=== PATIENT | female | born 1955 | race Asian ===

== ENCOUNTER 2017-07-08 21:20 | Inpatient (IN) | payer MEDICAID ==
[~2017-07-08] VITALS: Ht 157.5 cm; Wt 50.6 kg
[2017-07-08 22:10] LABS: BASOPHIL % 0.1 % (0-2)
[2017-07-08 22:22] LABS: CALCIUM 7.9 mg/dL (8.5-10.1); CARBON DIOXIDE 23.7 mmol/L (21-32); POTASSIUM SERUM 3.7 mmol/L (3.5-5.1)
[2017-07-08 22:25] LABS: PLATELET COUNT 32 x10^3mcL (130-400); RED CELL DISTRIBUTION WIDTH 20.4 % (11.5-14.5)
[2017-07-08 22:27] LABS: BILIRUBIN TOTAL 0.18 mg/dL (0.20-1.00)
[2017-07-08 22:30] LABS: ALBUMIN 1.1 g/dL (3.4-5.0); TOTAL PROTEIN, SERUM 4.7 g/dL (6.4-8.2)
[2017-07-08 22:40] LABS: rbc morphology (normal/abnorm) ABNORMAL (NORMAL)
[2017-07-08 23:17] LABS: microscopic required? NO
[2017-07-08] MEDS ORDERED: ZYKADIA150 MG PO (23:18)
[2017-07-08] MEDS ORDERED: MARINOL5 MG PO (23:21)
[2017-07-08] MEDS ORDERED: NYSTATIN100000 U/M PO (23:22)
[2017-07-09] VITALS (8 sets, daily range): BP systolic 111–137; BP diastolic 64–93; Ht 157.5 cm; Wt 50.6 kg
[2017-07-09 00:04] LABS: UA SPECIFIC GRAVITY 1.015 (1.005-1.035); urine erythrocyte NEGATIVE (NEGATIVE)
[2017-07-09 00:41] LABS: CHOLESTEROL/HDL RATIO 8.6; MAGNESIUM 2.4 mg/dL (1.8-2.4); PHOSPHOROUS 4.1 mg/dL (2.5-4.9)
[2017-07-09 00:51] LABS: FREE T4 1.28 ng/dL (0.76-1.46); FREE THYROXINE INDEX 3.4 ug/dL (1.4-4.5); T4(THYROXINE) 8.6 ug/dL (4.7-13.3)
[2017-07-09 01:46] LABS: T3 TOTAL 0.73 ng/mL
[2017-07-10 03:41] VITALS: BP 139/81
[2017-07-10 06:03] LABS: CALCIUM 7.9 mg/dL (8.5-10.1); CARBON DIOXIDE 25.9 mmol/L (21-32); CHLORIDE SERUM 124 mmol/L (98-107); CREATININE SERUM 0.6 mg/dL (0.6-1.0); GFR1 > 60 mL/min; GLUCOSE SERUM 89 mg/dL (74-106); MAGNESIUM 2.1 mg/dL (1.8-2.4); PHOSPHOROUS 3.8 mg/dL (2.5-4.9); POTASSIUM SERUM 3.5 mmol/L (3.5-5.1); SODIUM SERUM 156 mmol/L (136-145)
[2017-07-10 06:08] LABS: BASOPHIL % 0 % (0-2); RED CELL DISTRIBUTION WIDTH 20.9 % (11.5-14.5)
[2017-07-10 06:09] LABS: PLATELET COUNT 17 x10^3mcL (130-400)
[2017-07-10 07:30] VITALS: BP 118/80
[2017-07-10 11:30] VITALS: BP 118/78
[2017-07-10 15:20] VITALS: BP 126/90
[2017-07-10 19:50] VITALS: BP 138/79
[2017-07-11] VITALS (7 sets, daily range): BP systolic 102–137; BP diastolic 72–94
[2017-07-11 08:27] LABS: CALCIUM 7.9 mg/dL (8.5-10.1); CARBON DIOXIDE 25.2 mmol/L (21-32); CHLORIDE SERUM 122 mmol/L (98-107); CREATININE SERUM 0.8 mg/dL (0.6-1.0); GFR1 > 60 mL/min; GLUCOSE SERUM 161 mg/dL (74-106); MAGNESIUM 2.1 mg/dL (1.8-2.4); PHOSPHOROUS 3.6 mg/dL (2.5-4.9); POTASSIUM SERUM 3.3 mmol/L (3.5-5.1); SODIUM SERUM 153 mmol/L (136-145)
[2017-07-11 09:27] LABS: RED CELL DISTRIBUTION WIDTH 20.6 % (11.5-14.5)
[2017-07-11 09:30] LABS: PLATELET COUNT 14 x10^3mcL (130-400)
[2017-07-11 10:30] LABS: MONOCYTE 4 % (0-7); SEGMENTED NEUTROPHILS 65 % (37-75)
[2017-07-11 10:32] LABS: BAND NEUTROPHIL 20 % (0-10); BASOPHIL 0 % (0-2); rbc morphology (normal/abnorm) ABNORMAL (NORMAL); schistocyte (helmet cell) 1+; tear drop cell (dacryocyte) 1+
[2017-07-11 10:33] LABS: PLATELET MORPHOLOGY PLATELETS DECREASED
[2017-07-12 04:00] VITALS: BP 93/77
[2017-07-12 06:05] LABS: CALCIUM 8.4 mg/dL (8.5-10.1); CARBON DIOXIDE 20.3 mmol/L (21-32); CREATININE SERUM 1.3 mg/dL (0.6-1.0); MAGNESIUM 2.2 mg/dL (1.8-2.4); PHOSPHOROUS 5.9 mg/dL (2.5-4.9)
[2017-07-12 06:29] LABS: BASOPHIL % 0 % (0-2); PLATELET COUNT 11 x10^3mcL (130-400); RED CELL DISTRIBUTION WIDTH 21.6 % (11.5-14.5)
[2017-07-12 23:16] VITALS: BP 77/48
[2017-07-13 05:53] VITALS: BP 71/42
[2017-07-13 09:57] VITALS: BP 64/38
[2017-07-13 22:12] VITALS: BP 140/113
== END 2017-07-14 18:30 | disposition expired | DRG 720 ==
LOC: ED 21:20 → IC 23:08 → DU 23:08 → MU 07-12 16:04
PROVIDERS: Emergency Medicine; Family Medicine; ADMIT Family Medicine
DX: A41.9 Sepsis, unspecified organism (principal); N17.0 Acute kidney failure with tubular necrosis; J96.01 Acute respiratory failure with hypoxia; I26.99 Other pulmonary embolism without acute cor pulmonale; J69.0 Pneumonitis due to inhalation of food and vomit; E87.8 Other disorders of electrolyte and fluid balance, not elsewhere classified; D69.59 Other secondary thrombocytopenia; C78.7 Secondary malignant neoplasm of liver and intrahepatic bile duct; C79.31 Secondary malignant neoplasm of brain; C79.51 Secondary malignant neoplasm of bone; J91.0 Malignant pleural effusion; R65.20 Severe sepsis without septic shock; E43 Unspecified severe protein-calorie malnutrition; Z66 Do not resuscitate; E86.0 Dehydration; Z51.5 Encounter for palliative care; L89.152 Pressure ulcer of sacral region, stage 2; M62.50 Muscle wasting and atrophy, not elsewhere classified, unspecified site; T45.1X5A Adverse effect of antineoplastic and immunosuppressive drugs, initial encounter; Z99.81 Dependence on supplemental oxygen; Z68.1 Body mass index [BMI] 19.9 or less, adult; C34.91 Malignant neoplasm of unspecified part of right bronchus or lung
CPT/HCPCS: 36600; 83880; 84439; 90658; J1100; J1885; J1940; J1956; J2270; J2543; J3480; J3490; J7030; J7042; J7613; Q0092; Q9967